=== PATIENT | female | born 1965 | race Caucasian/White ===

== ENCOUNTER → 2017-05-19 | Outpatient (CLI) | payer MEDICAID ==
[2013-11-19 13:22] VITALS: BP 130/75
[~2017-05-19] MED LIST: ATIVAN0.5 MG PO; DEPAKOTE250 MG PO; DEPAKOTE500 MG PO; POTASSIUM20 MEQ PO; SIMVASTATIN20 MG; TRAZADONE HYDR100 MG PO; ZOLOFT
== END ==
LOC: MAMMO 13:41
DX: Z12.31 Encounter for screening mammogram for malignant neoplasm of breast (principal)
CPT/HCPCS: G0202

== ENCOUNTER → 2018-06-01 | Outpatient (CLI) | payer MEDICAID ==
[2013-11-19 13:22] VITALS: BP 130/75
== END ==
LOC: MAMMO 08:51
DX: Z12.31 Encounter for screening mammogram for malignant neoplasm of breast (principal); Z13.820 Encounter for screening for osteoporosis; M81.0 Age-related osteoporosis without current pathological fracture

== ENCOUNTER 2019-10-09 10:30 | Outpatient (RCR) | payer MEDICAID ==
[2013-11-19 13:22] VITALS: BP 130/75
== END 2019-12-26 | disposition still patient (30) ==
LOC: PT
DX: R53.1 Weakness (principal)

== ENCOUNTER 2020-08-20 10:06 | Observation (INO) | payer MEDICAID ==
[~2020-08-20] VITALS: Ht 149.9 cm; Wt 44.3 kg
[~2020-08-20 10:06] MED LIST changes: +ANORO ELLIPTA1 POW IH; +ASPIRIN E.C. 8181 MG PO; +BUTALBITAL, ACE1 TA1 PO; +CALCIUM WITH VI1 TA1 PO; +DALIRESP500 MCG PO; +DESYREL50 MG PO; +DIVALPROEX SOD250 M1 PO; +EMGALITY120 MG/1 M SQ; +FOLIC ACID1 MG PO; +IPRATROPIUM BROM3 M1 IH; +KETOROLAC10 MG PO; +KLONOPIN 0.5MG0.5 MG PO; +LEVOFLOXACIN750 MG PO; +LEVOTHYROXINE0.05 MG PO; +LOMOTIL TAB 01 UDTAB PO; +MAGNESIUM OXID400 M1 PO; +MULTIPLE VITAMI1 T25 PO; +NEURONTIN300 M1 PO; +NEURONTIN300 MG/CAP PO; +NICOTINE14 MG/24 H TD; +PHENERGAN 25 TA25 MG PO; +POTASSIUM CHLO20 ME4 PO; +PREDNISONE20 MG PO; +PRILOSEC 20MG20 MG PO; +PROAIR HFA0.09 MG/AC IH; +RT SPIRIVA INH18 MCG IH; +SERTRALINE HYD100 MG PO; +SIMVASTATIN10 M1 PO; +TIZANIDINE2 MG PO; +UBRELVY50 MG PO; +VIIBRYD10 MG PO
[2020-08-20 11:08] LABS: HEMATOCRIT 41.5 % (37.0-47.0); HEMOGLOBIN 13.3 g/dL (12.5-16.0); MEAN CELL VOLUME 105 fl (78-100); MEAN CORPUSCULAR HEMOGLOBIN 34 pg (27-31); MEAN CORPUSCULAR HGB CONC 32 g/dL (33-37); MEAN PLATELET VOLUME 10.2 fl (7.4-10.4); PLATELET COUNT 216 K/mm3 (130-400); RED BLOOD COUNT 3.95 M/mm3 (4.10-5.30); RED CELL DISTRIBUTION WIDTH 12.4 % (11.5-14.5); WHITE BLOOD COUNT 5.8 K/mm3 (4.8-10.8)
[2020-08-20 11:16] LABS: ALBUMIN 4.1 g/dL (3.5-5.0); POTASSIUM 3.5 mmol/L (3.5-5.1); SODIUM 142 mmol/L (136-145)
[2020-08-20 11:17] LABS: CALCIUM 11.1 mg/dL (8.3-10.5)
[2020-08-20 11:18] LABS: GLUCOSE 160 mg/dL (65-105); TOTAL PROTEIN 7.5 g/dL (6.4-8.3)
[2020-08-20 11:19] LABS: CARBON DIOXIDE 36 mmol/L (22-29); LYMPHOCYTE 8 % (20-51); NEUTROPHILS 83 % (42-75)
[2020-08-20 11:20] LABS: MONOCYTE 7 % (3-10); TOTAL BILIRUBIN 0.2 mg/dL (0.2-1.2)
[2020-08-20 11:24] LABS: AST-SGOT 21 U/L (5-34)
[2020-08-20 11:25] LABS: ALT/SGPT 16 U/L (0-55)
[2020-08-20 12:09] LABS: URINE COLOR YE
[2020-08-20 12:11] LABS: URINE APPEARANCE CLOUDY; URINE PROTEIN(semi-quant) 2+ mg/dL (NEGATIVE)
[2020-08-20 12:13] LABS: URINE BILIRUBIN NEGATIVE (NEGATIVE); URINE BLOOD 250 ery/uL (NEGATIVE); URINE GLUCOSE NEGATIVE (NEGATIVE); URINE KETONE 1+ (NEGATIVE); URINE LEUKOCYTE ESTERASE NEGATIVE (NEGATIVE); URINE NITRATE NEGATIVE (NEGATIVE); URINE UROBILINOGEN NORMAL (NORMAL)
[2020-08-20 12:15] LABS: ERYTHROCYTE SEDIMENTATION RATE 23 mm/hr (0-30)
[2020-08-20 21:00] VITALS: BP 145/72
--- NOTE | 2020-08-20 22:00 | NUR ---
Patient was admitted from the ER for failure to thrive. Her is currently in the hospital in [place]. He had not heard from patient for a couple days so he called D for a welfare check. She was found in her recliner and had not been caring for herself, unknown if she was eating, drinking, walking, or taking her medications. Agnes did a psych screen in the ER and patient was deemed not an immediate danger to self or others and therefore does not qualify for inpatient psych but they also recommend her not going home alone due to inability to care for self. She is alert and oriented but very tearful, is oriented to room and policies. Call light within reach, side rails up x 2, bed alarm on.
--- NOTE | 2020-08-20 23:30 | NUR ---
Patient is very tearful, thinks she is at the hospital because her doesn't want her anymore because "all I do is fuck things up" reassurance provided and emotional support, patient agrees to take her medications after nurse explains each one too her, after a couple of pills, she tries to hand the cup back to the nurse and says "I don't think I want anymore" nurse reassures her that they are the same medications she is on at home and that getting back on a schedule of taking them might help her feel better. She reponds "what's the use? I'm never going to get better. There is no reason for me to keep trying" nurse stays with patient until she calms down, she eventually takes the remaining HS medications without difficulty, remains depressed and tearful, will continue to monitor closely, Nurse tries to ask her what she likes to do (in an effort to distract her) to which she replies "I don't even know anymore" and starts to cry harder, side rails up x 2, call light within reach, bed alarm on,
[2020-08-21 00:03] VITALS: BP 153/71
[2020-08-21 06:03] VITALS: BP 167/84
[2020-08-21 09:14] VITALS: BP 123/61
--- NOTE | 2020-08-21 13:05 | NUR ---
Spoke with Jesse Alexander APS geriatric case manager. [phone] He will be looking into if Macie has Medicare. At this time we do not believe that she has Medicare. She has been on Medicaid greater than 2 years. Potentially may be able to have Medicare. PT DOES HAVE SOCIAL SECURITY INCOME. $794/MONTH SPOKE WITH SON DEVIN BAH. HE IS IN AGREEMENT TO SEEK [facility]. HE IS UNABLE TO HAVE HER LIVE WITH HIM AT THIS TIME. SPOKE WITH CORDELL AT [facility]. SHE WILL LOOK INTO PLACEMENT AT [facility].
[2020-08-21 13:36] VITALS: BP 107/69
--- NOTE | 2020-08-21 14:33 | NUR ---
[facility] declined placement. Will attempt placement in [place].
--- NOTE | 2020-08-21 16:13 | NUR ---
Called [facility] for LTC placement and sent clinicals, Awaiting response
--- NOTE | 2020-08-21 16:16 | NUR ---
Called [facility], and faxed clinicals Awaiting response
[2020-08-21 17:16] VITALS: BP 125/102
--- NOTE | 2020-08-21 21:00 | NUR ---
Patient rest in bed. Alert and oriented x4. HS meds all reviewed and taken without problems. Up to the bathroom with walker and CGA,does HS care at sink and rests back in bed. Takes snack of cereal.
[2020-08-21 22:05] VITALS: BP 104/75
[2020-08-22 02:36] VITALS: BP 118/84
--- NOTE | 2020-08-22 03:00 | NUR ---
Patient sitting up in bed. States she's got some sleep. Offered warm blanket and given.
[2020-08-22 05:50] VITALS: BP 103/67
[2020-08-22 09:22] VITALS: BP 127/68
--- NOTE | 2020-08-22 09:34 | NUR ---
Called [facility] for a CARE Assessment to be scheduled.
--- NOTE | 2020-08-22 09:48 | NUR ---
Spoke with Christopher Alexander, Assigned APS [phone]. He will check with Facilities in [facility] for placement as well. CARE Assessment will need to be completed. and a COVID - 19 screening.
--- NOTE | 2020-08-22 10:24 | NUR ---
Zoom meeting for CARE assessment scheduled for Wednesday, August 26, 2020 at 11:30 am.
[2020-08-22 13:43] VITALS: BP 114/60
--- NOTE | 2020-08-22 13:55 | NUR ---
PT IN BETTER SPIRITS THIS SHIFT. PT SMILING AND HAVING CONVERSATION WITH STAFF. SON DEVIN VISITED THIS SHIFT ET PT HEARD LAUGHING AND JOKING WITH HIM. PT STATES SHE IS FEELING BETTER AND JUST NEEDS TO GET STRONGER AGAIN. NO COMPLAINTS VOICED THIS SHIFT.
[2020-08-22 16:33] VITALS: BP 146/80
--- NOTE | 2020-08-22 17:03 | NUR ---
Spoke with Macie and asked when her last dose of chemo therapy was taken. She states that she did not take the chemo as prescribed. she doesn't know when her last dose was. She also stated that Dr. Davila her oncologist called her today and she was unable to go to her follow up appointment that was scheduled for today. Macie is less shakey today. She is also smiling more today than yesterday. Advised her that someone will call Dr. Davila's office to reschedule her follow up appointment.
--- NOTE | 2020-08-22 19:00 | NUR ---
Report received from Heather AGOSTO.
--- NOTE | 2020-08-22 21:00 | NUR ---
HS meds all reviewed and given. Reports mild headache and has history of migraines fiorocet given per patient request. Patient up to the bathroom,voids and does HS care. Took snack of sandwich and juice.
--- NOTE | 2020-08-22 22:30 | NUR ---
Reports continued headache and states her home order for fiorcet states she could repeat in 1 hour. Lucina LAW notified and new order received. Reviewed that med has caffeine and asked if that would keep her awake. Patient then states wants to take tylenol. Tylenol given. Lucina LAW notified.
[2020-08-22 22:47] VITALS: BP 132/75
--- NOTE | 2020-08-22 23:26 | NUR ---
Patient requests klonopin for restlessness and given. Patient in good spirits and visits readily with staff.
--- NOTE | 2020-08-23 01:30 | NUR ---
Patient awake and denies headache or pain at this time. Requests warm milk and honey-given. States she's just fidgety and that will help.
[2020-08-23 01:36] VITALS: BP 119/73
--- NOTE | 2020-08-23 05:59 | NUR ---
Patient states she slept good after her milk and honey. Up to the bathroom and voids. Gait mostly steady. Less tremors noted. No pain voiced. Rests back in bed. Juice given.
[2020-08-23 06:29] VITALS: BP 119/72
[2020-08-23 10:19] VITALS: BP 112/73
--- NOTE | 2020-08-23 10:30 | NUR ---
Received call from Brenda at [facility] in [place]. She was looking for update on pt. Explained that we were looking for potential placement for pt. Brenda requested follow up call once we had more information regarding pt's discharge plan. .
--- NOTE | 2020-08-23 11:30 | NUR ---
Provider at this met with pt to discuss her options. Pt was unsure of what she wanted to do, return home vs. LTC placement. Pt was very focused on her need for a phone. Pt states that her cellphone and that she has asked for a room phone but still does not have one. Discussed with primary nurse and room phone provided. Plan to f/u later with pt after she has had a chance to wpeak with family.
[2020-08-23 14:14] VITALS: BP 105/63
--- NOTE | 2020-08-23 14:18 | NUR ---
Pt states she would like to talk with SW or case mngt again. CM notified.
--- NOTE | 2020-08-23 15:48 | NUR ---
Met with pt to discuss discharge plans. Discussed pt returning home today. When asked if she felt like she could return home pt said "yes, no, maybe". Pt very quiet and tearful at the beginning of our encounter. We discussed the option of LTC and [facility] placement. Pt states that she would be agreeable to go for a little but she would like to go home first. Explained that a LTCF would be long-term and they would expect her to stay there and not leave to see family. Pt became tearful with this and stated that she was already upset that we have the bed and chair alarm on her her. She states that she is upset that she has not even been able to go outside for fresh air while hospitalized. Explained that that could be arranged but was dependent on staffing availability. Discussed if pt felt like she would be safe returning home today. Pt stated that she that wasn't even an option. Asked for her to elaborate and she said she wasn't able to get a hold of anyone because her phone was and Alan, her SO, has his phone off and she has not been able to speak with him. Asked if this CM could try to reach out to Alan. Pt evaded the question multiple times. Conversation had many moments of pt not aswering this CM's questions and just starring at CM with tearful expression. Pt had multiple excuses for why she could not go to a facility or return home. Pt continued to be very focused on not being able to make phone calls out. Pt received call to room phone and this CM left room to provide privacy. Call placed to Alan (ph# [phone]). He states that he is home from the hospital but still feels very weak. He stated that he didn't knwo who would take care of the pt if she returned home today. States that they have been talking about placement for the last month because if he continues to care for her it will either "kill him or her". States that she will just be back in another month if she returns home. He asked about rehab options for pt. States that she is incontinent frequently and he is unable to care for her. Discussed that we could not force pt to go to a facility. He repeated that she would just be back if she returned home. Requested that he bring pt's cellphone plasterer stucco up to her. States he was going to come visit her today but after taking a shower he was too tired. Requested that he call up to room and speak with her, as she had been trying to reach out to him. Alan provided with phone number. Provider updated.
[2020-08-23 16:27] VITALS: BP 115/73
--- NOTE | 2020-08-23 16:39 | NUR ---
Notified by provider that she spoke wiht pt and pt has selected to go to [facility]. Preference form signed by pt. Clinical Summary faxed to [facility], fax# [phone].
[2020-08-24 06:03] VITALS: BP 109/75
--- NOTE | 2020-08-24 07:00 | NUR ---
Report received from SURENDRA Escalona.
--- NOTE | 2020-08-24 08:14 | NUR ---
REPORT GIVEN TO AGNIESZKA AGOSTO
[2020-08-24 09:32] VITALS: BP 85/54
--- NOTE | 2020-08-24 09:54 | NUR ---
Pt with BP of 85/54. Manual BP 83/36 by SURENDRA Kwan. Pt asymptomatic at this time. Call placed to Dr. Espinosa. Continue to watch at this time.
--- NOTE | 2020-08-24 10:50 | NUR ---
REPORT RECEIVED FROM AGNIESZKA AGOSTO.
--- NOTE | 2020-08-24 11:50 | NUR ---
REPORT RECEIVED FROM AGNIESZKA AGOSTO.
[2020-08-24 14:13] VITALS: BP 102/64
[2020-08-24 17:17] VITALS: BP 121/77
--- NOTE | 2020-08-24 19:56 | NUR ---
REPORT PROVIDED TO KALYN AGOSTO.
[2020-08-24 22:07] VITALS: BP 103/64
[2020-08-25 02:03] VITALS: BP 142/83
[2020-08-25 06:05] VITALS: BP 145/82
--- NOTE | 2020-08-25 06:30 | NUR ---
Patient has not slept well throughout the night. She was able to rest but not sleep. Her headache is improved but believes the caffeine content of the fiorecet she took for her headache is what kept her awake. Ambulates to the bathroom with standby assist, voids without difficulty and has a medium, soft formed bowel movement, ambulates back to bed. Call light within reach, side rails up x 2, bed alarm activated. Patient denies any needs/complaints at this time.
--- NOTE | 2020-08-25 08:30 | NUR ---
patient sitting up in bed. shift assessment complete. patient's color pale. patient's affect flat. patient has pathetic appearance. this nurse asked patient how she was feeling this morning patient states "just weak" asked patient what happened between this admission and when she was admitted a couple weeks ago patient states "i was doing okay and then i hit another low and everything just took a turn for the worst". patient denies any suicidal or homicidal thoughts to self or others. patient on oxygen via nasal cannula at 3L. denies any increased shortness of breath from baseline. patients' call light within reach. bed alarm on.
[2020-08-25 09:57] VITALS: BP 112/72
[2020-08-25 10:16] LABS: URINE APPEARANCE CLEAR; URINE BILIRUBIN NEGATIVE (NEGATIVE); URINE BLOOD TRACE (NEGATIVE); URINE COLOR YELLOW; URINE GLUCOSE NEGATIVE (NEGATIVE); URINE KETONE NEGATIVE (NEGATIVE); URINE LEUKOCYTE ESTERASE NEGATIVE (NEGATIVE); URINE MUCUS PRESENT (NOT PRESENT); URINE NITRATE NEGATIVE (NEGATIVE); URINE PROTEIN(semi-quant) NEGATIVE (NEGATIVE); URINE UROBILINOGEN NORMAL (NORMAL); URINE WBC 0-1 /hpf (0-3)
[2020-08-25 14:10] VITALS: BP 112/71
[2020-08-25 17:42] VITALS: BP 130/75
[2020-08-25 22:35] VITALS: BP 121/72
[2020-08-26 02:09] VITALS: BP 135/76
--- NOTE | 2020-08-26 05:17 | NUR ---
Patient up to the bathroom and back to bed. Urine cloudy, yellow.
[2020-08-26 06:17] VITALS: BP 115/67
[2020-08-26 10:00] VITALS: BP 107/67
--- NOTE | 2020-08-26 10:00 | NUR ---
patient sitting on edge of bed getting ready to work with physical therapy. this nurse in room. states to patient that her color looks better today and that she looks like she is feeling better this morning. patient states "oh really that's really nice of you to say. i was thinking this morning that i was feeling pretty" and made hand motion to say flat or steady. patient seems to ahve a little more life to her this morning and is not as flat as yesterday. patient denies suicidal or homicidal thoughts or ideation.
[2020-08-26 14:11] VITALS: BP 118/74
[2020-08-26 17:34] VITALS: BP 114/73
--- NOTE | 2020-08-26 20:15 | NUR ---
Awake and sitting up in bed. Oxygen in place at 3L/NC. A/O x4. Denies pain. Assessment completed. HS medications taken without difficulty. Requests and given juice and turkey sandwhich. Bed alarm on. Call light in reach.
[2020-08-26 23:09] VITALS: BP 111/70; BP 111/709
[2020-08-27 02:50] VITALS: BP 114/66
--- NOTE | 2020-08-27 05:39 | NUR ---
Awake all night. Rang several times for assist to BR. Ambulates with SBA and no device. Gait steady. Bed alarm on. Call light in reach.
[2020-08-27 05:50] VITALS: BP 114/72
--- NOTE | 2020-08-27 07:14 | NUR ---
Report to Aniya AGOSTO,
[2020-08-27 09:30] VITALS: BP 102/70
--- NOTE | 2020-08-27 11:00 | NUR ---
THE PT IS DISCHARGED HOME. SHE DRESSES AND TOILETS HERSELF AND PERFORMS ALL ADLS INDEPENDENTLY PRIOR TO DISCHARGE. THE PT AND HER SIGNIFICANT OTHER, MEAGHAN, ARE PROVIDED DISCHARGE INSTRUCTIONS AND EDUCATION. BOTH PARTIES DENY ANY QUESTIONS. THE PT DOES NOT HAVE AN INT IN PLACE AND ALL PERSONAL BELONGINGS ARE IN THE PT'S HAND AT TIME OF DISCHARGE. THE PT IS TAKEN OFF THE UNIT IN A WHEELCHAIR AND LEAVES VIA POV WITH MEAGHAN.
== END 2020-08-27 11:00 | disposition home or self-care (01) ==
LOC: ED 10:06 → MED/SURG 20:15
PROVIDERS: Family Medicine; Physician Assistant; ADMIT Nurse Practitioner Family
DX: R62.7 Adult failure to thrive (principal); Z91.14 Patient's other noncompliance with medication regimen; F31.5 Bipolar disorder, current episode depressed, severe, with psychotic features; F23 Brief psychotic disorder; J44.9 Chronic obstructive pulmonary disease, unspecified; N39.0 Urinary tract infection, site not specified; E46 Unspecified protein-calorie malnutrition; R32 Unspecified urinary incontinence; Z20.822 Contact with and (suspected) exposure to COVID-19; R15.9 Full incontinence of feces; F17.210 Nicotine dependence, cigarettes, uncomplicated; F41.0 Panic disorder [episodic paroxysmal anxiety]; R53.81 Other malaise; K21.9 Gastro-esophageal reflux disease without esophagitis; E03.9 Hypothyroidism, unspecified; E78.5 Hyperlipidemia, unspecified; R56.9 Unspecified convulsions; G43.909 Migraine, unspecified, not intractable, without status migrainosus; Z86.73 Personal history of transient ischemic attack (TIA), and cerebral infarction without residual deficits; Z99.81 Dependence on supplemental oxygen; Z85.3 Personal history of malignant neoplasm of breast; Z85.038 Personal history of other malignant neoplasm of large intestine; Z85.048 Personal history of other malignant neoplasm of rectum, rectosigmoid junction, and anus; Z79.899 Other long term (current) drug therapy; Z79.82 Long term (current) use of aspirin; Z79.890 Hormone replacement therapy; Z88.0 Allergy status to penicillin; Z88.8 Allergy status to other drugs, medicaments and biological substances
CPT/HCPCS: G0378; J0696; J1650; J2060; J2405